=== PATIENT | male | born 1975 | race Caucasian/White ===

== ENCOUNTER → 2022-05-07 13:03 | Outpatient (BNVA) | payer OTHER, SELFPAY | PROVIDERS: PCP Student in an Organized Health Care Education/Training Program; Visit Provider Nurse Practitioner Family | DX: G43.009 Migraine without aura, not intractable, without status migrainosus (principal); R41.89 Other symptoms and signs involving cognitive functions and awareness; R46.89 Other symptoms and signs involving appearance and behavior; F25.9 Schizoaffective disorder, unspecified | CPT/HCPCS: 99202 ==

== ENCOUNTER → 2022-12-05 12:17 | Outpatient (BNVA) | payer OTHER, SELFPAY | PROVIDERS: PCP Student in an Organized Health Care Education/Training Program; Visit Provider Nurse Practitioner Family | DX: G43.009 Migraine without aura, not intractable, without status migrainosus (principal); R41.89 Other symptoms and signs involving cognitive functions and awareness; R46.89 Other symptoms and signs involving appearance and behavior | CPT/HCPCS: 99212 ==

== ENCOUNTER 2023-04-01 19:01 | Inpatient (IN) | payer OTHER, SELFPAY ==
[2023-04-01 19:15] VITALS: BP 125/76; PULSE 78; RESP 16; TEMP 36.1; O2SAT 99
[2023-04-01 21:38] VITALS: BMI 24.6
--- NOTE | 2023-04-01 22:35 | PC.ADMIT ---
Addendum entered by Socorro Callaway RN 04/01/23 22:51: PT was placed on 15 minute safety checks. PT refused flu vaccine as he already received it this season. Original Note: PT is a 48 year old bermudian only speaking male that arrived on this unit at 19:10 from [facility]. Admission interview and legals done by Maite Zamudio RN due to being Japanese speaking [facility]. PT was medically admitted to [facility] and subsequently medically cleared after ingesting 4 bottles of unknown meds in a suicide attempt. PT reports no recent life changes however reports he feels his meds have not been working despite him taking them as directed. PT reports a history of requiring IPLOC ([place] in 2016 and 2019 as well as APTU but dates unknown)and multiple suicide gestures. PT denies any illicit substance use however TOX screen was + for cocaine. COVID neg. PT does not report any acute medical issues or concerns. PT reports needing med changes as he has had an increase in AH which led to his suicide attempt. According to [facility] report, psych meds were discontinued. PT reports having a therpist and psychiatrist in [place] that he speaks with on the phone biweekly but does not know their names. PT denies SI/HI and VH. Legals signed, safety tool completed. TX plan to be completed. Continue plan of care.
--- NOTE | 2023-04-01 23:34 | PC.NURSE ---
Per notes from [facility], psych meds were discontinued. Cam made aware, med rec to be completed tomorrow per provider. Continue plan of care.
[2023-04-02 08:00] VITALS: BP 134/63; PULSE 84; RESP 18; TEMP 35.9; O2SAT 99
[2023-04-02 09:37] LABS: Estimated Average Glucose 94 mg/dL; Hemoglobin A1c % 4.9 % (<6.0)
[2023-04-02 09:38] LABS: Alanine Aminotransferase 12 U/L (0-40); Albumin Level 4.4 g/dL (3.5-5.0); Alkaline Phosphatase 63 U/L (39-117); Anion Gap 14 (12-20); Aspartate Amino Transferase 15 U/L (5-37); Bilirubin Total 0.6 mg/dL (0.0-1.0); Blood Urea Nitrogen 13 mg/dL (9-16); Carbon Dioxide 25 mmol/L (22-29); Chloride 106 mmol/L (96-108); Cholesterol 219 mg/dL (<200); Creatinine Clr Calc Pharmacy 99.2; Estimated Glomerular Filt Rate > 60; Glucose Fasting 94 mg/dL (60-99); HDL Cholesterol 55 mg/dL (>40); LDL Cholesterol Calculated 138 mg/dL (<100); Potassium 4.4 mmol/L (3.3-5.1); Sodium 141 mmol/L (135-145); Total Protein 7.3 g/dL (6.5-8.0); Triglycerides 132 mg/dL (<150)
[2023-04-02 09:48] LABS: Thyroid Stimulating Hormone 3.87 uIU/mL (0.32-4.0)
[2023-04-02 10:05] LABS: Folate 13.3 ng/mL (> or = 4.0); Vitamin B12 1042 pg/mL (200-900)
[2023-04-02] MEDS: Nicotine 14 MG PATCH.TD24 TRANSDERMA (12:06)
[2023-04-02] MEDS: Divalproex Sodium 500 MG TABLET.DR PO (12:06)
[2023-04-02] MEDS: Cholecalciferol (Vitamin D3) 25 MCG TABLET 50 MCG PO (12:06)
--- NOTE | 2023-04-02 14:10 | P.CONHOSP_ITS ---
History of Present Illness Data of Consult Service Date: 04/02/23 Requesting physician: Darnell Villalobos Primary Care Provider: Unknown Physician HPI Reason for consult: medical H&P 48-year-old male without any significant past medical history admitted to Psychiatry with consult placed hospitalist service for medical H and P. The patient is a direct admission from [facility] where he had been admitted following an overdose of Depakote, trazodone, bupropion. Poison Control was contacted recommending serial EKGs and checking ammonia level and Depakote q.4h. Initially Depakote level was 100 but trended down to therapeutic level. Ammonia level remained normal. Telemetry monitoring and EKGs were negative for any ectopy or QTC abnormality. On discharge, hematology studies and chemistries were unremarkable. He denies any drug use or alcohol use but does smoke 3 cigarettes daily. He has no complaints at this time. Review of Systems 2 Review of Systems: General: No fevers, malaise, unintentional weight loss HEENT: No blurred vision, diplopia. No sore throat, nasal congestion, rhinorrhea, sinus pain, ear pain Cardiovascular: No chest pain, palpitations, or leg edema Respiratory: No shortness of breath, wheezing, cough GI: No abdominal pain, nausea, vomiting, diarrhea, constipation, melena, hematochezia : No dysuria, hematuria, increased urinary frequency, decreased urinary output MSK: No myalgia, back pain Neuro: No headaches, weakness, paresthesias Skin: No rashes or lesions [facility] Medical History No pertinent past medical history Family History Mother Hypertension Mental disorder Father Alzheimer disease Dementia Maternal Grandmother Suicide Surgical History History of back surgery Social History Household Members: None Housing: Apartment Do you presently have visiting nurse or other home services: Yes Alcohol intake: never Patient Tobacco Use Status: Current everyday Tobacco user Tobacco use type: Cigarette Cigarettes Per Day: 3 Years Smoked: 1 Smoked in Last 30 Days: Yes e-Cigarette/Vaping Use: Never Used Patient Interested in Nicotine Replacement: Yes Patient Given Instructions on How to Stop Smoking: Yes Date Education Initiated: 04/01/23 Second Hand Smoke Exposure: No Use of substances other than those prescribed or required for medical reasons: No Currently Displaying Signs/Symptoms of Drug Intoxication Withdrawal: No Have you been hit, kicked, punched, or otherwise hurt by someone within the past year? If so, by whom?: No Do you feel safe in your current relationship?: No Current Relationship Is there a partner from a previous relationship who is making you feel unsafe now?: No Are you made to feel afraid or neglected: No Advance Directives: No Advance Directives Information Provided: No Do you have thoughts of harming others: None Do you have a plan to hurt others: No Plan Recently lost weight without trying: No Nutrition Risks: No Nutritional Risk Poor oral hygiene: No Meds Allergies Allergy/AdvReac Type Severity Reaction Status Date / Time No Known Allergies Allergy Verified 12/05/22 13:00 Active Medications: Current Medications Acetaminophen (Acetaminophen 325 Mg Tablet) 650 mg PO Q6H PRN PRN Reason: Headache/Pain Mild Scale (1-3) Al Hydroxide/Mg Hydroxide (Magnesium Hydrox/Alum Hydrox 30 Ml Oral.Susp) 30 ml PO Q6H PRN PRN Reason: Heartburn/Nausea Divalproex Sodium (Divalproex Sodium 500 Mg Tablet.Dr) 500 mg PO DAILY [facility] Last Admin: 04/02/23 12:06 Dose: 500 mg Hydroxyzine HCl (Hydroxyzine Hcl 25 Mg Tablet) 25 mg PO Q6H PRN PRN Reason: Anxiety Magnesium Hydroxide (Milk Of Magnesia 30 Ml Oral.Susp) 30 ml PO DAILY PRN PRN Reason: Constipation Magnesium Oxide (Magnesium Oxide 400 Mg Tablet) 400 mg PO BEDTIME [facility] Nicotine (Nicotine 14 Mg Patch.Td24) 14 mg TRANSDERMA DAILY [facility] Last Admin: 04/02/23 12:06 Dose: 14 mg Nicotine Polacrilex (Nicotine Polacrilex 2 Mg Gum) 2 mg BUCCAL Q2H PRN PRN Reason: Nicotine Cravings Trazodone HCl (Trazodone Hcl 50 Mg Tablet) 150 mg PO BEDTIME [facility] Vitamin D (Cholecalciferol (Vitamin D3) 25 Mcg Tablet) 50 mcg PO DAILY [facility] Last Admin: 04/02/23 12:06 Dose: 50 mcg Home Medications Medication Instructions Recorded Confirmed Last Taken Type cholecalciferol (vitamin D3) 50 50 mcg PO DAILY 04/02/23 04/02/23 Unknown History mcg (2,000 unit) tablet (Vitamin D3) divalproex 500 mg tablet,delayed 500 mg PO QAM 04/02/23 04/02/23 Unknown History release magnesium oxide 1 mg PO BEDTIME 04/02/23 04/02/23 Unknown History paliperidone palmitate 117 mg/0.75 117 mg IM QMONTH 04/02/23 04/02/23 Unknown History mL intramuscular syringe (Invega Sustenna) riboflavin (vitamin B2) 400 mg 400 mg PO DAILY 04/02/23 04/02/23 Unknown History tablet trazodone 100 mg tablet 150 mg PO BEDTIME 04/02/23 04/02/23 Unknown History Physical Exam 2 Vital Signs and Narrative: Vital Signs: Last Vital Signs Temp 96.7 F L 04/02/23 08:00 Pulse 84 04/02/23 08:00 Resp 18 04/02/23 08:00 BP 134/63 04/02/23 08:00 Pulse Ox 99 04/02/23 08:00 O2 Del Method Room Air 04/02/23 08:00 BMI result Body Mass Index 24.6 Constitutional - Awake and Alert, No apparent distress Eyes - PERRLA, EOMI Cardiovascular - S1S2, RRR, No edema Respiratory - Normal lung expansion, Normal respiratory effort, No respiratory distress, CTA bilaterally Gastrointestinal - NT / ND; +BS; No rebound or guarding Extremities - no calf tenderness bilaterally, no swelling Musculoskeletal - Normal inspection, normal ROM Skin - Warm/Dry Neurological - Alert & oriented x3, CN II-XII in tact, 5/5 strength BUE and BLE Psychological - Appropriate affect Results Labs 04/02/23 08:28 Labs: Laboratory Results - last 24 hr 04/02/23 08:28 Anion Gap 14 Estim Creat Clear Calc 99.2 Estimated GFR > 60 Fasting Glucose 94 Estimat Average Glucose 94 Hemoglobin A1c % 4.9 Calcium 10.0 Total Bilirubin 0.6 AST 15 ALT 12 Alkaline Phosphatase 63 Total Protein 7.3 Albumin 4.4 Triglycerides 132 Cholesterol 219 H LDL Cholesterol, Calc 138 H HDL Cholesterol 55 Vitamin B12 1042 H Folate 13.3 TSH 3.87 Assessment and Plan (1) Routine medical exam: Status: Acute Plan 48-year-old male without any significant past medical history admitted to Psychiatry with consult placed hospitalist service for medical H and P. #Mood disorder/SI -plan per psychiatry #Intentional overdose -overdose on trazodone, bupropion, depakote -Depakote and ammonia levels normal on discharge -EKG reassuring, no ectopy or qt prolongation #Cigarette smoker -NRT -cessation counsing Thank you for allowing me to participate in this consult. Signing off at this time. Please do not hesitate to call for further questions. Time Spent With Patient Time: Total time managing care of this patient today ____ minutes.
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
[2023-04-02 18:00] VITALS: BP 115/76; PULSE 97; RESP 18; TEMP 36.6; O2SAT 97
[2023-04-02] MEDS: Magnesium Oxide 400 MG TABLET PO (20:57)
[2023-04-02] MEDS: traZODone HCL 50 MG TABLET 150 MG PO (20:57)
[2023-04-02] MEDS: chlorproMAZINE HCl 25 MG TABLET 50 MG PO (20:59)
[2023-04-03 08:00] VITALS: BP 96/54; PULSE 70; RESP 16; TEMP 36.2; O2SAT 97
[2023-04-03] MEDS: Divalproex Sodium 500 MG TABLET.DR PO (08:47)
[2023-04-03] MEDS: Nicotine 14 MG PATCH.TD24 TRANSDERMA (08:47)
[2023-04-03] MEDS: Cholecalciferol (Vitamin D3) 25 MCG TABLET 50 MCG PO (08:48)
--- NOTE | 2023-04-03 14:56 | HO.PSYCHPN ---
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 Reports mother will visit and will bring Invega Sustenna injection. Continues to report difficulty with sleep will adjust meds. Depressive sx are so-so . Reports less anxiety, feeling improved in some ways. Message left with [facility], Dr. Méndez regarding treatment. Pt asking to discontinue Trazodone it really has never worked for me and makes me feel worse it seems . My other meds are good I think Continues to reports auditory perceptual alterations-agrees to Trazodone increase along with Mirtazpaine trial. Medication Compliance: Yes Side effects from medications: No Attending Groups: No Review of Systems Acute medical concerns: No Medical Review of Systems: unchanged Mental Status Exam Mental Status Exam Patient Appearance: Appropriate and Rigid (perioral TD) Patient Orientation: Person, Place, Time and Situation Level of Consciousness: Alert Patient Behavior: Appropriate, Talkative, Cooperative, Passive, Anxious, Distractible and Good Eye Contact Mood Description: Constricted Affect Description: Flat Patient Cognition Impaired: No Ability to Follow Directions: Fair Speech Pattern: Perseverating and Spontaneous Speech Memory Description: Episodic Impaired Hallucinations: Auditory Delusions: Not Present Perceptual Disturbances: Depersonalization and Derealization Thought Process: Distracted and Rumination Thought Content: positive for Perseveration, positive for Thought Blocking (???) and positive for Suicidal Ideation (denies) Depressive Symptoms: Insomnia (reversal of sleep cycle), Difficulty Sleeping and Thoughts of /Suicide (denies) Judgement: Fair Diagnostics Vital Signs (24Hr): Vital Signs - 24 hr 04/02/23 18:00 04/03/23 08:00 Temperature 98 F 97.2 F Pulse Rate 97 70 Respiratory Rate 18 16 Blood Pressure 115/76 96/54 L Pulse Oximetry 97 97 Oxygen Delivery Method Room Air Room Air BMI result Body Mass Index 24.6 Labs 04/02/23 08:28 Labs: Laboratory Results - last 48 hr 04/02/23 08:28 Sodium 141 Potassium 4.4 Chloride 106 Carbon Dioxide 25 Anion Gap 14 BUN 13 Creatinine 0.98 Estim Creat Clear Calc 99.2 Estimated GFR > 60 Fasting Glucose 94 Estimat Average Glucose 94 Hemoglobin A1c % 4.9 Calcium 10.0 Total Bilirubin 0.6 AST 15 ALT 12 Alkaline Phosphatase 63 Total Protein 7.3 Albumin 4.4 Triglycerides 132 Cholesterol 219 H LDL Cholesterol, Calc 138 H HDL Cholesterol 55 Vitamin B12 1042 H Folate 13.3 TSH 3.87 Medications Medications Current Medications Acetaminophen (Acetaminophen 325 Mg Tablet) 650 mg PO Q6H PRN PRN Reason: Headache/Pain Mild Scale (1-3) Al Hydroxide/Mg Hydroxide (Magnesium Hydrox/Alum Hydrox 30 Ml Oral.Susp) 30 ml PO Q6H PRN PRN Reason: Heartburn/Nausea Divalproex Sodium (Divalproex Sodium 500 Mg Tablet.Dr) 500 mg PO DAILY [facility] Last Admin: 04/03/23 08:47 Dose: 500 mg Hydroxyzine HCl (Hydroxyzine Hcl 25 Mg Tablet) 25 mg PO Q6H PRN PRN Reason: Anxiety Magnesium Hydroxide (Milk Of Magnesia 30 Ml Oral.Susp) 30 ml PO DAILY PRN PRN Reason: Constipation Magnesium Oxide (Magnesium Oxide 400 Mg Tablet) 400 mg PO BEDTIME [facility] Last Admin: 04/02/23 20:57 Dose: 400 mg Nicotine (Nicotine 14 Mg Patch.Td24) 14 mg TRANSDERMA DAILY [facility] Last Admin: 04/03/23 08:47 Dose: 14 mg Nicotine Polacrilex (Nicotine Polacrilex 2 Mg Gum) 2 mg BUCCAL Q2H PRN PRN Reason: Nicotine Cravings Trazodone HCl (Trazodone Hcl 50 Mg Tablet) 150 mg PO BEDTIME [facility] Last Admin: 04/02/23 20:57 Dose: 150 mg Vitamin D (Cholecalciferol (Vitamin D3) 25 Mcg Tablet) 50 mcg PO DAILY [facility] Last Admin: 04/03/23 08:48 Dose: 50 mcg Allergies Allergies Allergy/AdvReac Type Severity Reaction Status Date / Time No Known Allergies Allergy Verified 12/05/22 13:00 Assessment & Plan Assessment & Plan (1) Schizo affective schizophrenia: Status: Acute Code(s): F25.9 - Schizoaffective disorder, unspecified (2) PTSD (post-traumatic stress disorder): Status: Acute Code(s): F43.10 - Post-traumatic stress disorder, unspecified Plan 48 yo male, history of PTSD, schizophrenia, cannabis use in sustained remission presents in transfer from [facility] s/p overdose of prescribed psychiatric medication which he cannot identify. Reports no current precipitants but no reason to live, responded to CAH to harm himself. Willing to work with the team on current symptoms. Plan: Chlorpromazine 50 mg hs tonight to trial for sleep. Collateral contact, mother, Dr. Méndez Milieu involvement Medication re-evaluation and adjustment After care planning 04/03/23 Increase Chlorpromazine to 100 mg HS Mirtazapine 7.5 mg HS Discontinue Trazodone Invega Sustenna injection due 04/10/23 Patient educated on: medication risk/benefits and therapeutic strategies Informed Consent: further education needed Reason for continued inpatient stay Substantial Risk for: harm to self and rapid decompensation Time Spent With Patient Time: Total time managing care of this patient today ____ minutes.
[2023-04-03 18:00] VITALS: BP 107/68; PULSE 87; TEMP 36.3; O2SAT 97
[2023-04-03] MEDS: chlorproMAZINE HCl 100 MG TABLET PO (21:51)
[2023-04-03] MEDS: Mirtazapine 7.5 MG TABLET PO (21:51)
[2023-04-03] MEDS: Magnesium Oxide 400 MG TABLET PO (21:51)
[2023-04-04 07:00] VITALS: BMI 24.8
[2023-04-04 08:40] VITALS: BP 131/87; PULSE 73; RESP 16; TEMP 35.7; O2SAT 99
[2023-04-04] MEDS: Nicotine 14 MG PATCH.TD24 TRANSDERMA (08:41)
[2023-04-04] MEDS: Divalproex Sodium 500 MG TABLET.DR PO (08:41)
[2023-04-04] MEDS: Cholecalciferol (Vitamin D3) 25 MCG TABLET 50 MCG PO (08:41)
--- NOTE | 2023-04-04 12:55 | P.PNPSI_ITS ---
Subjective Subjective Date of Service: 04/04/23 Reason For Visit: F42.9, F29 Subjective Notes: Conditional Voluntary Healthcare Proxy: No Guardianship: No Medical Problems Affecting Mental Status: No Interim History: Pt reports he slept reasonably last evening. Reports feeling some improvement. Mother's visit last evening was helpful. Discussed Invega Sustenna injection and increasing dosing to improve mgt of auditory perceptual alterations. Pt is agreeable to an increase from 117 mg to 156 mg. Injection due 04/10/23. Medication Compliance: Yes Side effects from medications: No Attending Groups: No Review of Systems Acute medical concerns: No Medical Review of Systems: unchanged Mental Status Exam Mental Status Exam Patient Appearance: Appropriate and Rigid (perioral TD) Patient Orientation: Person, Place, Time and Situation Level of Consciousness: Alert Patient Behavior: Appropriate, Talkative, Cooperative, Passive, Anxious, Distractible and Good Eye Contact Mood Description: Constricted Affect Description: Flat Patient Cognition Impaired: No Ability to Follow Directions: Fair Speech Pattern: Perseverating and Spontaneous Speech Memory Description: Episodic Impaired Hallucinations: Auditory Delusions: Not Present Perceptual Disturbances: Depersonalization and Derealization Thought Process: Distracted and Rumination Thought Content: positive for Perseveration, positive for Thought Blocking (???) and positive for Suicidal Ideation (denies) Depressive Symptoms: Insomnia (reversal of sleep cycle), Difficulty Sleeping and Thoughts of /Suicide (denies) Judgement: Fair Diagnostics Vital Signs (24Hr): Vital Signs - 24 hr 04/03/23 18:00 04/04/23 08:40 Temperature 97.4 F 96.3 F L Pulse Rate 87 73 Respiratory Rate 16 Blood Pressure 107/68 131/87 Pulse Oximetry 97 99 Oxygen Delivery Method Room Air Room Air BMI result Body Mass Index 24.8 Labs 04/02/23 08:28 Medications Medications Current Medications Acetaminophen (Acetaminophen 325 Mg Tablet) 650 mg PO Q6H PRN PRN Reason: Headache/Pain Mild Scale (1-3) Al Hydroxide/Mg Hydroxide (Magnesium Hydrox/Alum Hydrox 30 Ml Oral.Susp) 30 ml PO Q6H PRN PRN Reason: Heartburn/Nausea Chlorpromazine HCl (Chlorpromazine Hcl 100 Mg Tablet) 100 mg PO BEDTIME [facility] Last Admin: 04/03/23 21:51 Dose: 100 mg Divalproex Sodium (Divalproex Sodium 500 Mg Tablet.) 500 mg PO DAILY [facility] Last Admin: 04/04/23 08:41 Dose: 500 mg Hydroxyzine HCl (Hydroxyzine Hcl 25 Mg Tablet) 25 mg PO Q6H PRN PRN Reason: Anxiety Magnesium Hydroxide (Milk Of Magnesia 30 Ml Oral.Susp) 30 ml PO DAILY PRN PRN Reason: Constipation Magnesium Oxide (Magnesium Oxide 400 Mg Tablet) 400 mg PO BEDTIME [facility] Last Admin: 04/03/23 21:51 Dose: 400 mg Mirtazapine (Mirtazapine 7.5 Mg Tablet) 7.5 mg PO BEDTIME [facility] Last Admin: 04/03/23 21:51 Dose: 7.5 mg Nicotine (Nicotine 14 Mg Patch.Td24) 14 mg TRANSDERMA DAILY [facility] Last Admin: 04/04/23 08:41 Dose: 14 mg Nicotine Polacrilex (Nicotine Polacrilex 2 Mg Gum) 2 mg BUCCAL Q2H PRN PRN Reason: Nicotine Cravings Patient Own Medication ( Paliperidone Palmitate [Invega Sustenna] 117 Mg/0. 75 Ml Syringe) 117 mg IM Q28D [facility] Vitamin D (Cholecalciferol (Vitamin D3) 25 Mcg Tablet) 50 mcg PO DAILY [facility] Last Admin: 04/04/23 08:41 Dose: 50 mcg Allergies Allergies Allergy/AdvReac Type Severity Reaction Status Date / Time No Known Allergies Allergy Verified 12/05/22 13:00 Assessment & Plan Assessment & Plan (1) Schizo affective schizophrenia: Status: Acute Code(s): F25.9 - Schizoaffective disorder, unspecified (2) PTSD (post-traumatic stress disorder): Status: Acute Code(s): F43.10 - Post-traumatic stress disorder, unspecified Plan 48 yo male, history of PTSD, schizophrenia, cannabis use in sustained remission presents in transfer from [facility] s/p overdose of prescribed psychiatric medication which he cannot identify. Reports no current precipitants but no reason to live, responded to [facility] to harm himself. Willing to work with the team on current symptoms. Plan: Chlorpromazine 50 mg hs tonight to trial for sleep. Collateral contact, mother, Dr. Méndez Milieu involvement Medication re-evaluation and adjustment After care planning 04/04/23- Continue current regime and plan Increase Invega Sustenna to 156 mg IM on 04/10/23. Patient educated on: medication risk/benefits Informed Consent: understands and further education needed Reason for continued inpatient stay Substantial Risk for: rapid decompensation Time Spent With Patient Time: Total time managing care of this patient today ____ minutes.
[2023-04-04] MEDS: Magnesium Oxide 400 MG TABLET PO (21:11)
[2023-04-04] MEDS: Mirtazapine 7.5 MG TABLET PO (21:11)
[2023-04-04] MEDS: chlorproMAZINE HCl 100 MG TABLET PO (21:11)
[2023-04-05] MEDS: Nicotine 14 MG PATCH.TD24 TRANSDERMA (08:05)
[2023-04-05] MEDS: Divalproex Sodium 500 MG TABLET.DR PO (08:05)
[2023-04-05] MEDS: Cholecalciferol (Vitamin D3) 25 MCG TABLET 50 MCG PO (08:05)
[2023-04-05 08:20] VITALS: BP 108/68; PULSE 70; RESP 18; TEMP 36.4; O2SAT 99
--- NOTE | 2023-04-05 13:02 | HO.PSYCHPN ---
Subjective Subjective Date of Service: 04/05/23 Reason For Visit: F42.9, F29 Subjective Notes: Conditional Voluntary Healthcare Proxy: No Guardianship: No Medical Problems Affecting Mental Status: No Interim History: Pt reports he continues to have appropriate sleep. He is agreeable to an increase in Invega Sustenna on 04/10 to 156 mg and will plan to discharge 04/11 if there are no adverse effects of the injection. Mother is supportive and we are informed today that she has arranged to get pt a kitten to help manage lonliness when discharged. Pt reports this plan he is comfortable with. He denies other concerns today. Medication Compliance: Yes Side effects from medications: No Attending Groups: No Review of Systems Acute medical concerns: No Medical Review of Systems: unchanged Mental Status Exam Mental Status Exam Patient Appearance: Appropriate and Rigid (perioral TD) Patient Orientation: Person, Place, Time and Situation Level of Consciousness: Alert Patient Behavior: Appropriate, Talkative, Cooperative, Passive, Anxious, Distractible and Good Eye Contact Mood Description: Constricted Affect Description: Flat Patient Cognition Impaired: No Ability to Follow Directions: Fair Speech Pattern: Perseverating and Spontaneous Speech Memory Description: Episodic Impaired Hallucinations: Auditory Delusions: Not Present Perceptual Disturbances: Depersonalization and Derealization Thought Process: Distracted and Rumination Thought Content: positive for Perseveration, positive for Thought Blocking (???) and positive for Suicidal Ideation (denies) Depressive Symptoms: Insomnia (reversal of sleep cycle), Difficulty Sleeping and Thoughts of /Suicide (denies) Judgement: Fair Diagnostics Vital Signs (24Hr): Vital Signs - 24 hr 04/05/23 08:20 Temperature 97.5 F Pulse Rate 70 Respiratory Rate 18 Blood Pressure 108/68 Pulse Oximetry 99 Oxygen Delivery Method Room Air BMI result Body Mass Index 24.8 Labs 04/02/23 08:28 Medications Medications Current Medications Acetaminophen (Acetaminophen 325 Mg Tablet) 650 mg PO Q6H PRN PRN Reason: Headache/Pain Mild Scale (1-3) Al Hydroxide/Mg Hydroxide (Magnesium Hydrox/Alum Hydrox 30 Ml Oral.Susp) 30 ml PO Q6H PRN PRN Reason: Heartburn/Nausea Chlorpromazine HCl (Chlorpromazine Hcl 100 Mg Tablet) 100 mg PO BEDTIME [facility] Last Admin: 04/04/23 21:11 Dose: 100 mg Divalproex Sodium (Divalproex Sodium 500 Mg Tablet.) 500 mg PO DAILY [facility] Last Admin: 04/05/23 08:05 Dose: 500 mg Hydroxyzine HCl (Hydroxyzine Hcl 25 Mg Tablet) 25 mg PO Q6H PRN PRN Reason: Anxiety Magnesium Hydroxide (Milk Of Magnesia 30 Ml Oral.Susp) 30 ml PO DAILY PRN PRN Reason: Constipation Magnesium Oxide (Magnesium Oxide 400 Mg Tablet) 400 mg PO BEDTIME [facility] Last Admin: 04/04/23 21:11 Dose: 400 mg Mirtazapine (Mirtazapine 7.5 Mg Tablet) 7.5 mg PO BEDTIME [facility] Last Admin: 04/04/23 21:11 Dose: 7.5 mg Nicotine (Nicotine 14 Mg Patch.Td24) 14 mg TRANSDERMA DAILY [facility] Last Admin: 04/05/23 08:05 Dose: 14 mg Nicotine Polacrilex (Nicotine Polacrilex 2 Mg Gum) 2 mg BUCCAL Q2H PRN PRN Reason: Nicotine Cravings Paliperidone Palmitate (Paliperidone Palmitate 156 Mg/Ml Syringe) 156 mg IM Q28D [facility] Vitamin D (Cholecalciferol (Vitamin D3) 25 Mcg Tablet) 50 mcg PO DAILY [facility] Last Admin: 04/05/23 08:05 Dose: 50 mcg Allergies Allergies Allergy/AdvReac Type Severity Reaction Status Date / Time No Known Allergies Allergy Verified 12/05/22 13:00 Assessment & Plan Assessment & Plan (1) Schizo affective schizophrenia: Status: Acute Code(s): F25.9 - Schizoaffective disorder, unspecified (2) PTSD (post-traumatic stress disorder): Status: Acute Code(s): F43.10 - Post-traumatic stress disorder, unspecified Plan 48 yo male, history of PTSD, schizophrenia, cannabis use in sustained remission presents in transfer from [facility] s/p overdose of prescribed psychiatric medication which he cannot identify. Reports no current precipitants but no reason to live, responded to [facility] to harm himself. Willing to work with the team on current symptoms. Plan: Chlorpromazine 50 mg hs tonight to trial for sleep. Collateral contact, mother, Dr. Méndez Milieu involvement Medication re-evaluation and adjustment After care planning 04/04/23- Continue current regime and plan Increase Invega Sustenna to 156 mg IM on 04/10/23. 11/3/23- Continue current regime and plan of care Patient educated on: therapeutic strategies Informed Consent: understands Reason for continued inpatient stay Substantial Risk for: rapid decompensation Time Spent With Patient Time: Total time managing care of this patient today ____ minutes.
[2023-04-05] MEDS: Mirtazapine 7.5 MG TABLET PO (19:41)
[2023-04-05] MEDS: chlorproMAZINE HCl 100 MG TABLET PO (19:41)
[2023-04-05] MEDS: Magnesium Oxide 400 MG TABLET PO (19:41)
[2023-04-06 07:40] VITALS: BP 121/71; PULSE 72; RESP 18; TEMP 36.1; O2SAT 98
[2023-04-06] MEDS: Nicotine 14 MG PATCH.TD24 TRANSDERMA (08:52)
[2023-04-06] MEDS: Cholecalciferol (Vitamin D3) 25 MCG TABLET 50 MCG PO (08:53)
[2023-04-06] MEDS: Divalproex Sodium 500 MG TABLET.DR PO (08:53)
--- NOTE | 2023-04-06 10:29 | HO.PSYCHPN ---
Subjective Subjective Date of Service: 04/06/23 Reason For Visit: F42.9, F29 Subjective Notes: Conditional Voluntary Healthcare Proxy: No Guardianship: No Medical Problems Affecting Mental Status: No Medication Compliance: Yes Side effects from medications: No Attending Groups: No Review of Systems Acute medical concerns: No Medical Review of Systems: unchanged Mental Status Exam Mental Status Exam Patient Appearance: Well Grooomed Patient Orientation: Person, Place and Time Level of Consciousness: Alert Patient Behavior: Guarded Mood Description: Calm Affect Description: Apprehensive Patient Cognition Impaired: No Ability to Follow Directions: Good Speech Pattern: Clear Memory Description: Intact Hallucinations: None Delusions: Paranoid Ideation (denies but appears suspicious) Thought Process: Linear Thought Content: positive for Poverty of Content Judgement: Fair Diagnostics Vital Signs (24Hr): Vital Signs - 24 hr 04/06/23 07:40 Temperature 96.9 F Pulse Rate 72 Respiratory Rate 18 Blood Pressure 121/71 Pulse Oximetry 98 Oxygen Delivery Method Room Air BMI result Body Mass Index 24.8 Labs 04/02/23 08:28 Medications Medications Current Medications Acetaminophen (Acetaminophen 325 Mg Tablet) 650 mg PO Q6H PRN PRN Reason: Headache/Pain Mild Scale (1-3) Al Hydroxide/Mg Hydroxide (Magnesium Hydrox/Alum Hydrox 30 Ml Oral.Susp) 30 ml PO Q6H PRN PRN Reason: Heartburn/Nausea Chlorpromazine HCl (Chlorpromazine Hcl 100 Mg Tablet) 100 mg PO BEDTIME [facility] Last Admin: 04/05/23 19:41 Dose: 100 mg Divalproex Sodium (Divalproex Sodium 500 Mg Tablet.Dr) 500 mg PO DAILY [facility] Last Admin: 04/06/23 08:53 Dose: 500 mg Hydroxyzine HCl (Hydroxyzine Hcl 25 Mg Tablet) 25 mg PO Q6H PRN PRN Reason: Anxiety Magnesium Hydroxide (Milk Of Magnesia 30 Ml Oral.Susp) 30 ml PO DAILY PRN PRN Reason: Constipation Magnesium Oxide (Magnesium Oxide 400 Mg Tablet) 400 mg PO BEDTIME [facility] Last Admin: 04/05/23 19:41 Dose: 400 mg Mirtazapine (Mirtazapine 7.5 Mg Tablet) 7.5 mg PO BEDTIME [facility] Last Admin: 04/05/23 19:41 Dose: 7.5 mg Nicotine (Nicotine 14 Mg Patch.Td24) 14 mg TRANSDERMA DAILY [facility] Last Admin: 04/06/23 08:52 Dose: 14 mg Nicotine Polacrilex (Nicotine Polacrilex 2 Mg Gum) 2 mg BUCCAL Q2H PRN PRN Reason: Nicotine Cravings Paliperidone Palmitate (Paliperidone Palmitate 156 Mg/Ml Syringe) 156 mg IM Q28D [facility] Vitamin D (Cholecalciferol (Vitamin D3) 25 Mcg Tablet) 50 mcg PO DAILY [facility] Last Admin: 04/06/23 08:53 Dose: 50 mcg Allergies Allergies Allergy/AdvReac Type Severity Reaction Status Date / Time No Known Allergies Allergy Verified 12/05/22 13:00 Assessment & Plan Assessment & Plan (1) Schizo affective schizophrenia: Status: Acute Code(s): F25.9 - Schizoaffective disorder, unspecified (2) PTSD (post-traumatic stress disorder): Status: Acute Code(s): F43.10 - Post-traumatic stress disorder, unspecified Plan 48 yo male, history of PTSD, schizophrenia, cannabis use in sustained remission presents in transfer from [facility] s/p overdose of prescribed psychiatric medication which he cannot identify. Reports no current precipitants but no reason to live, responded to [facility] to harm himself. Willing to work with the team on current symptoms. Plan: Chlorpromazine 50 mg hs tonight to trial for sleep. Collateral contact, mother, Dr. Méndez Milieu involvement Medication re-evaluation and adjustment After care planning 04/04/23- Continue current regime and plan Increase Invega Sustenna to 156 mg IM on 04/10/23. 04/05/23- Continue current regime and plan of care 04/06/23 No changes Reason for continued inpatient stay Substantial Risk for: rapid decompensation Time Spent With Patient Time: Total time managing care of this patient today ____ minutes.
[2023-04-06 18:00] VITALS: BP 130/82; PULSE 78; RESP 18; TEMP 36.8; O2SAT 99
[2023-04-06] MEDS: Nicotine Polacrilex 2 MG GUM BUCCAL (20:11)
[2023-04-06] MEDS: chlorproMAZINE HCl 100 MG TABLET PO (20:11)
[2023-04-06] MEDS: Mirtazapine 7.5 MG TABLET PO (20:11)
[2023-04-06] MEDS: hydrOXYzine HCL 25 MG TABLET PO (20:11)
[2023-04-06] MEDS: Magnesium Oxide 400 MG TABLET PO (20:11)
[2023-04-07 07:40] VITALS: BP 115/78; PULSE 68; RESP 18; TEMP 36.3; O2SAT 98
[2023-04-07] MEDS: Nicotine 14 MG PATCH.TD24 TRANSDERMA (08:28)
[2023-04-07] MEDS: Cholecalciferol (Vitamin D3) 25 MCG TABLET 50 MCG PO (08:29)
[2023-04-07] MEDS: Divalproex Sodium 500 MG TABLET.DR PO (08:29)
--- NOTE | 2023-04-07 11:19 | HO.PSYCHPN ---
Subjective Subjective Date of Service: 04/07/23 Reason For Visit: F42.9, F29 Subjective Notes: Conditional Voluntary Healthcare Proxy: No Medical Problems Affecting Mental Status: No Interim History: Not wanting to engage. Eating and sleeping OK. Denies thoughts of harming self or others. Voices are decreasing per chart Medication Compliance: Yes Side effects from medications: No Attending Groups: Intermittent Review of Systems Acute medical concerns: No Medical Review of Systems: unchanged Mental Status Exam Mental Status Exam Patient Appearance: Unkempt Patient Orientation: Person, Place and Time Level of Consciousness: Alert Patient Behavior: Suspicious and Uncooperative Mood Description: Withdrawn Affect Description: Constricted Speech Pattern: Clear Memory Description: Intact Hallucinations: Auditory Delusions: Paranoid Ideation Thought Process: Evasive Thought Content: positive for Thought Blocking Judgement: Fair Diagnostics Vital Signs (24Hr): Vital Signs - 24 hr 04/06/23 18:00 04/07/23 07:40 Temperature 98.2 F 97.4 F Pulse Rate 78 68 Respiratory Rate 18 18 Blood Pressure 130/82 115/78 Pulse Oximetry 99 98 Oxygen Delivery Method Room Air Room Air BMI result Body Mass Index 24.8 Labs 04/02/23 08:28 Medications Medications Current Medications Acetaminophen (Acetaminophen 325 Mg Tablet) 650 mg PO Q6H PRN PRN Reason: Headache/Pain Mild Scale (1-3) Al Hydroxide/Mg Hydroxide (Magnesium Hydrox/Alum Hydrox 30 Ml Oral.Susp) 30 ml PO Q6H PRN PRN Reason: Heartburn/Nausea Chlorpromazine HCl (Chlorpromazine Hcl 100 Mg Tablet) 100 mg PO BEDTIME [facility] Last Admin: 04/06/23 20:11 Dose: 100 mg Divalproex Sodium (Divalproex Sodium 500 Mg Tablet.Dr) 500 mg PO DAILY [facility] Last Admin: 04/07/23 08:29 Dose: 500 mg Hydroxyzine HCl (Hydroxyzine Hcl 25 Mg Tablet) 25 mg PO Q6H PRN PRN Reason: Anxiety Last Admin: 04/06/23 20:11 Dose: 25 mg Magnesium Hydroxide (Milk Of Magnesia 30 Ml Oral.Susp) 30 ml PO DAILY PRN PRN Reason: Constipation Magnesium Oxide (Magnesium Oxide 400 Mg Tablet) 400 mg PO BEDTIME [facility] Last Admin: 04/06/23 20:11 Dose: 400 mg Mirtazapine (Mirtazapine 7.5 Mg Tablet) 7.5 mg PO BEDTIME [facility] Last Admin: 04/06/23 20:11 Dose: 7.5 mg Nicotine (Nicotine 14 Mg Patch.Td24) 14 mg TRANSDERMA DAILY [facility] Last Admin: 04/07/23 08:28 Dose: 14 mg Nicotine Polacrilex (Nicotine Polacrilex 2 Mg Gum) 2 mg BUCCAL Q2H PRN PRN Reason: Nicotine Cravings Last Admin: 04/06/23 20:11 Dose: 2 mg Paliperidone Palmitate (Paliperidone Palmitate 156 Mg/Ml Syringe) 156 mg IM Q28D [facility] Vitamin D (Cholecalciferol (Vitamin D3) 25 Mcg Tablet) 50 mcg PO DAILY [facility] Last Admin: 04/07/23 08:29 Dose: 50 mcg Allergies Allergies Allergy/AdvReac Type Severity Reaction Status Date / Time No Known Allergies Allergy Verified 12/05/22 13:00 Assessment & Plan Assessment & Plan (1) Schizo affective schizophrenia: Status: Acute Code(s): F25.9 - Schizoaffective disorder, unspecified (2) PTSD (post-traumatic stress disorder): Status: Acute Code(s): F43.10 - Post-traumatic stress disorder, unspecified Plan 48 yo male, history of PTSD, schizophrenia, cannabis use in sustained remission presents in transfer from [facility] s/p overdose of prescribed psychiatric medication which he cannot identify. Reports no current precipitants but no reason to live, responded to [facility] to harm himself. Willing to work with the team on current symptoms. Plan: Chlorpromazine 50 mg hs tonight to trial for sleep. Collateral contact, mother, Dr. Méndez Milieu involvement Medication re-evaluation and adjustment After care planning 04/04/23- Continue current regime and plan Increase Invega Sustenna to 156 mg IM on 04/10/23. 04/05/23- Continue current regime and plan of care 04/06/23 No changes 04/07/23: no changes, due for increased Invega Sustenna 04/10 Reason for continued inpatient stay Substantial Risk for: inability to function and med/psych decompensation Time Spent With Patient Time: Total time managing care of this patient today ____ minutes.
[2023-04-07 16:15] VITALS: BP 118/72; PULSE 82; RESP 16; TEMP 36.8; O2SAT 96
[2023-04-07] MEDS: chlorproMAZINE HCl 100 MG TABLET PO (21:41)
[2023-04-07] MEDS: Mirtazapine 7.5 MG TABLET PO (21:42)
[2023-04-07] MEDS: Magnesium Oxide 400 MG TABLET PO (21:42)
[2023-04-07] MEDS: hydrOXYzine HCL 25 MG TABLET PO (21:42)
[2023-04-08 08:00] VITALS: BP 102/68; PULSE 70; RESP 18; TEMP 35.9; O2SAT 98
[2023-04-08] MEDS: Cholecalciferol (Vitamin D3) 25 MCG TABLET 50 MCG PO (09:00)
[2023-04-08] MEDS: Nicotine 14 MG PATCH.TD24 TRANSDERMA (09:00)
[2023-04-08] MEDS: Divalproex Sodium 500 MG TABLET.DR PO (09:00)
--- NOTE | 2023-04-08 09:39 | P.PNPSI_ITS ---
Subjective Subjective Date of Service: 04/08/23 Reason For Visit: F42.9, F29 Subjective Notes: Conditional Voluntary Healthcare Proxy: No Guardianship: No Medical Problems Affecting Mental Status: No Interim History: Pt reports his weekend was without adverse events. He continues to hear voices at night which interrupt sleep. They are voices of others, not his own. Plans an increase in Sustenna on 04/10 and if tolerated will discharge 04/11. Denies SI, plan or intent. Medication Compliance: Yes Side effects from medications: No Attending Groups: No Review of Systems Acute medical concerns: No Medical Review of Systems: unchanged Mental Status Exam Mental Status Exam Patient Appearance: Fatigued and Appropriate Patient Orientation: Person, Place, Time and Situation Level of Consciousness: Alert Patient Behavior: Talkative, Isolative and Good Eye Contact Mood Description: Blunted Affect Description: Blunted Patient Cognition Impaired: No Ability to Follow Directions: Good Speech Pattern: Appropriate and Spontaneous Speech Memory Description: Intact Hallucinations: Auditory Delusions: Not Present Thought Process: Intact Thought Content: positive for Intact Depressive Symptoms: Thoughts of /Suicide (denies) Judgement: Good Diagnostics Vital Signs (24Hr): Vital Signs - 24 hr 04/07/23 16:15 04/08/23 08:00 Temperature 98.3 F 96.7 F L Pulse Rate 82 70 Respiratory Rate 16 18 Blood Pressure 118/72 102/68 Pulse Oximetry 96 98 Oxygen Delivery Method Room Air Room Air BMI result Body Mass Index 24.8 Labs 04/02/23 08:28 Medications Medications Current Medications Acetaminophen (Acetaminophen 325 Mg Tablet) 650 mg PO Q6H PRN PRN Reason: Headache/Pain Mild Scale (1-3) Al Hydroxide/Mg Hydroxide (Magnesium Hydrox/Alum Hydrox 30 Ml Oral.Susp) 30 ml PO Q6H PRN PRN Reason: Heartburn/Nausea Chlorpromazine HCl (Chlorpromazine Hcl 100 Mg Tablet) 100 mg PO BEDTIME [facility] Last Admin: 04/07/23 21:41 Dose: 100 mg Divalproex Sodium (Divalproex Sodium 500 Mg Tablet.) 500 mg PO DAILY [facility] Last Admin: 04/08/23 09:00 Dose: 500 mg Hydroxyzine HCl (Hydroxyzine Hcl 25 Mg Tablet) 25 mg PO Q6H PRN PRN Reason: Anxiety Last Admin: 04/07/23 21:42 Dose: 25 mg Magnesium Hydroxide (Milk Of Magnesia 30 Ml Oral.Susp) 30 ml PO DAILY PRN PRN Reason: Constipation Magnesium Oxide (Magnesium Oxide 400 Mg Tablet) 400 mg PO BEDTIME [facility] Last Admin: 04/07/23 21:42 Dose: 400 mg Mirtazapine (Mirtazapine 7.5 Mg Tablet) 7.5 mg PO BEDTIME [facility] Last Admin: 04/07/23 21:42 Dose: 7.5 mg Nicotine (Nicotine 14 Mg Patch.Td24) 14 mg TRANSDERMA DAILY [facility] Last Admin: 04/08/23 09:00 Dose: 14 mg Nicotine Polacrilex (Nicotine Polacrilex 2 Mg Gum) 2 mg BUCCAL Q2H PRN PRN Reason: Nicotine Cravings Last Admin: 04/06/23 20:11 Dose: 2 mg Paliperidone Palmitate (Paliperidone Palmitate 156 Mg/Ml Syringe) 156 mg IM Q28D [facility] Vitamin D (Cholecalciferol (Vitamin D3) 25 Mcg Tablet) 50 mcg PO DAILY [facility] Last Admin: 04/08/23 09:00 Dose: 50 mcg Allergies Allergies Allergy/AdvReac Type Severity Reaction Status Date / Time No Known Allergies Allergy Verified 12/05/22 13:00 Assessment & Plan Assessment & Plan (1) Schizo affective schizophrenia: Status: Acute Code(s): F25.9 - Schizoaffective disorder, unspecified (2) PTSD (post-traumatic stress disorder): Status: Acute Code(s): F43.10 - Post-traumatic stress disorder, unspecified Plan 48 yo male, history of PTSD, schizophrenia, cannabis use in sustained remission presents in transfer from [facility] s/p overdose of prescribed psychiatric medication which he cannot identify. Reports no current precipitants but no reason to live, responded to [facility] to harm himself. Willing to work with the team on current symptoms. Plan: Chlorpromazine 50 mg hs tonight to trial for sleep. Collateral contact, mother, Dr. Méndez Milieu involvement Medication re-evaluation and adjustment After care planning 04/04/23- Continue current regime and plan Increase Invega Sustenna to 156 mg IM on 04/10/23. 04/05/23- Continue current regime and plan of care 04/06/23 No changes 04/07/23: no changes, due for increased Invega Sustenna 04/1004/08/23 continue current regime and plan of care. Patient educated on: medication risk/benefits Informed Consent: understands Reason for continued inpatient stay Substantial Risk for: harm to self and rapid decompensation Time Spent With Patient Time: Total time managing care of this patient today ____ minutes.
[2023-04-08 16:52] VITALS: BP 118/81; PULSE 92; TEMP 36.3; O2SAT 99
[2023-04-08] MEDS: Mirtazapine 7.5 MG TABLET PO (20:33)
[2023-04-08] MEDS: Magnesium Oxide 400 MG TABLET PO (20:33)
[2023-04-08] MEDS: chlorproMAZINE HCl 100 MG TABLET PO (20:33)
[2023-04-09 08:00] VITALS: BP 112/62; PULSE 77; RESP 16; TEMP 36.3; O2SAT 97
[2023-04-09] MEDS: Cholecalciferol (Vitamin D3) 25 MCG TABLET 50 MCG PO (08:58)
[2023-04-09] MEDS: Nicotine 14 MG PATCH.TD24 TRANSDERMA (08:58)
[2023-04-09] MEDS: Divalproex Sodium 500 MG TABLET.DR PO (08:59)
[2023-04-09] MEDS: Acetaminophen 325 MG TABLET 650 MG PO (09:12)
[2023-04-09] MEDS: hydrOXYzine HCL 25 MG TABLET PO (09:12)
--- NOTE | 2023-04-09 16:25 | HO.PSYCHPN ---
Subjective Subjective Date of Service: 04/09/23 Reason For Visit: F42.9, F29 Subjective Notes: Conditional Voluntary Healthcare Proxy: No Guardianship: No Medical Problems Affecting Mental Status: No Interim History: Pt resting in bed, awake, alert, visable in milieu at times, however appears to remain in his room for most of the day. Denies sx of concern, denies SI, plan or intent. Perceptual alterations are decreased. Prepared for his injection on 04/10 and believes there will be no barrier to a discharge on 04/11. Medication Compliance: Yes Side effects from medications: No Attending Groups: No Review of Systems Acute medical concerns: No Medical Review of Systems: unchanged Mental Status Exam Mental Status Exam Patient Appearance: Appropriate Patient Orientation: Person, Place, Time and Situation Level of Consciousness: Alert Patient Behavior: Talkative, Isolative and Good Eye Contact Mood Description: Blunted Affect Description: Blunted Patient Cognition Impaired: No Ability to Follow Directions: Good Speech Pattern: Appropriate and Spontaneous Speech Memory Description: Intact Hallucinations: Auditory Delusions: Not Present Thought Process: Intact Thought Content: positive for Intact Depressive Symptoms: Thoughts of /Suicide (denies) Judgement: Good Diagnostics Vital Signs (24Hr): Vital Signs - 24 hr 04/08/23 16:52 04/09/23 08:00 Temperature 97.3 F 97.3 F Pulse Rate 92 77 Respiratory Rate 16 Blood Pressure 118/81 112/62 Pulse Oximetry 99 97 Oxygen Delivery Method Room Air Room Air BMI result Body Mass Index 24.8 Labs 04/02/23 08:28 Medications Medications Current Medications Acetaminophen (Acetaminophen 325 Mg Tablet) 650 mg PO Q6H PRN PRN Reason: Headache/Pain Mild Scale (1-3) Last Admin: 04/09/23 09:12 Dose: 650 mg Al Hydroxide/Mg Hydroxide (Magnesium Hydrox/Alum Hydrox 30 Ml Oral.Susp) 30 ml PO Q6H PRN PRN Reason: Heartburn/Nausea Chlorpromazine HCl (Chlorpromazine Hcl 100 Mg Tablet) 100 mg PO BEDTIME [facility] Last Admin: 04/08/23 20:33 Dose: 100 mg Divalproex Sodium (Divalproex Sodium 500 Mg Tablet.Dr) 500 mg PO DAILY [facility] Last Admin: 04/09/23 08:59 Dose: 500 mg Hydroxyzine HCl (Hydroxyzine Hcl 25 Mg Tablet) 25 mg PO Q6H PRN PRN Reason: Anxiety Last Admin: 04/09/23 09:12 Dose: 25 mg Magnesium Hydroxide (Milk Of Magnesia 30 Ml Oral.Susp) 30 ml PO DAILY PRN PRN Reason: Constipation Magnesium Oxide (Magnesium Oxide 400 Mg Tablet) 400 mg PO BEDTIME [facility] Last Admin: 04/08/23 20:33 Dose: 400 mg Mirtazapine (Mirtazapine 7.5 Mg Tablet) 7.5 mg PO BEDTIME [facility] Last Admin: 04/08/23 20:33 Dose: 7.5 mg Nicotine (Nicotine 14 Mg Patch.Td24) 14 mg TRANSDERMA DAILY [facility] Last Admin: 04/09/23 08:58 Dose: 14 mg Nicotine Polacrilex (Nicotine Polacrilex 2 Mg Gum) 2 mg BUCCAL Q2H PRN PRN Reason: Nicotine Cravings Last Admin: 04/06/23 20:11 Dose: 2 mg Paliperidone Palmitate (Paliperidone Palmitate 156 Mg/Ml Syringe) 156 mg IM Q28D [facility] Vitamin D (Cholecalciferol (Vitamin D3) 25 Mcg Tablet) 50 mcg PO DAILY [facility] Last Admin: 04/09/23 08:58 Dose: 50 mcg Allergies Allergies Allergy/AdvReac Type Severity Reaction Status Date / Time No Known Allergies Allergy Verified 12/05/22 13:00 Assessment & Plan Assessment & Plan (1) Schizo affective schizophrenia: Status: Acute Code(s): F25.9 - Schizoaffective disorder, unspecified (2) PTSD (post-traumatic stress disorder): Status: Acute Code(s): F43.10 - Post-traumatic stress disorder, unspecified Plan 48 yo male, history of PTSD, schizophrenia, cannabis use in sustained remission presents in transfer from [facility] s/p overdose of prescribed psychiatric medication which he cannot identify. Reports no current precipitants but no reason to live, responded to [facility] to harm himself. Willing to work with the team on current symptoms. Plan: Chlorpromazine 50 mg hs tonight to trial for sleep. Collateral contact, mother, Dr. Méndez Milieu involvement Medication re-evaluation and adjustment After care planning 04/04/23- Continue current regime and plan Increase Invega Sustenna to 156 mg IM on 04/10/23. 04/05/23- Continue current regime and plan of care 04/06/23 No changes 04/07/23: no changes, due for increased Invega Sustenna 04/1004/09/23 continue current regime and plan of care Informed Consent: understands Reason for continued inpatient stay Substantial Risk for: harm to self and rapid decompensation Time Spent With Patient Time: Total time managing care of this patient today ____ minutes.
[2023-04-09 17:35] VITALS: PULSE 103; RESP 16; TEMP 36.4; O2SAT 98
[2023-04-09] MEDS: Mirtazapine 7.5 MG TABLET PO (19:57)
[2023-04-09] MEDS: chlorproMAZINE HCl 100 MG TABLET PO (19:57)
[2023-04-09] MEDS: Magnesium Oxide 400 MG TABLET PO (19:57)
[2023-04-10] MEDS: Cholecalciferol (Vitamin D3) 25 MCG TABLET 50 MCG PO (08:28)
[2023-04-10] MEDS: Nicotine 14 MG PATCH.TD24 TRANSDERMA (08:28)
[2023-04-10] MEDS: Divalproex Sodium 500 MG TABLET.DR PO (08:28)
[2023-04-10 08:30] VITALS: BP 111/60; PULSE 80; RESP 16; TEMP 36.3; O2SAT 98
[2023-04-10] MEDS: Paliperidone Palmitate 156 MG/ML SYRINGE IM (10:34)
--- NOTE | 2023-04-10 16:22 | HO.PSYCHPN ---
Subjective Subjective Date of Service: 04/10/23 Reason For Visit: F42.9, F29 Subjective Notes: Conditional Voluntary Healthcare Proxy: No Guardianship: No Medical Problems Affecting Mental Status: No Interim History: Pt reports feeling well. Tolerated Invega Sustenna injection 156 mg today. Plans discharge 04/11 Denies SI, HI, AH, VH, CAH at this time Believes he is prepared to discharge Medication Compliance: Yes Side effects from medications: No Attending Groups: No Review of Systems Acute medical concerns: No Medical Review of Systems: unchanged Mental Status Exam Mental Status Exam Patient Appearance: Appropriate Patient Orientation: Person, Place, Time and Situation Level of Consciousness: Alert Patient Behavior: Talkative, Isolative and Good Eye Contact Mood Description: Blunted Affect Description: Blunted Patient Cognition Impaired: No Ability to Follow Directions: Good Speech Pattern: Appropriate and Spontaneous Speech Memory Description: Intact Hallucinations: None (denies today) Delusions: Not Present Thought Process: Intact Thought Content: positive for Intact Depressive Symptoms: Thoughts of /Suicide (denies) Judgement: Good Diagnostics Vital Signs (24Hr): Vital Signs - 24 hr 04/09/23 17:35 04/10/23 08:30 Temperature 97.5 F 97.3 F Pulse Rate 103 H 80 Respiratory Rate 16 16 Blood Pressure 111/60 Pulse Oximetry 98 98 Oxygen Delivery Method Room Air Room Air BMI result Body Mass Index 24.8 Labs 04/02/23 08:28 Medications Medications Current Medications Acetaminophen (Acetaminophen 325 Mg Tablet) 650 mg PO Q6H PRN PRN Reason: Headache/Pain Mild Scale (1-3) Last Admin: 04/09/23 09:12 Dose: 650 mg Al Hydroxide/Mg Hydroxide (Magnesium Hydrox/Alum Hydrox 30 Ml Oral.Susp) 30 ml PO Q6H PRN PRN Reason: Heartburn/Nausea Chlorpromazine HCl (Chlorpromazine Hcl 100 Mg Tablet) 100 mg PO BEDTIME [facility] Last Admin: 04/09/23 19:57 Dose: 100 mg Divalproex Sodium (Divalproex Sodium 500 Mg Tablet.Dr) 500 mg PO DAILY [facility] Last Admin: 04/10/23 08:28 Dose: 500 mg Hydroxyzine HCl (Hydroxyzine Hcl 25 Mg Tablet) 25 mg PO Q6H PRN PRN Reason: Anxiety Last Admin: 04/09/23 09:12 Dose: 25 mg Magnesium Hydroxide (Milk Of Magnesia 30 Ml Oral.Susp) 30 ml PO DAILY PRN PRN Reason: Constipation Magnesium Oxide (Magnesium Oxide 400 Mg Tablet) 400 mg PO BEDTIME [facility] Last Admin: 04/09/23 19:57 Dose: 400 mg Mirtazapine (Mirtazapine 7.5 Mg Tablet) 7.5 mg PO BEDTIME [facility] Last Admin: 04/09/23 19:57 Dose: 7.5 mg Nicotine (Nicotine 14 Mg Patch.Td24) 14 mg TRANSDERMA DAILY [facility] Last Admin: 04/10/23 08:28 Dose: 14 mg Nicotine Polacrilex (Nicotine Polacrilex 2 Mg Gum) 2 mg BUCCAL Q2H PRN PRN Reason: Nicotine Cravings Last Admin: 04/06/23 20:11 Dose: 2 mg Paliperidone Palmitate (Paliperidone Palmitate 156 Mg/Ml Syringe) 156 mg IM Q28D [facility] Last Admin: 04/10/23 10:34 Dose: 156 mg Vitamin D (Cholecalciferol (Vitamin D3) 25 Mcg Tablet) 50 mcg PO DAILY [facility] Last Admin: 04/10/23 08:28 Dose: 50 mcg Allergies Allergies Allergy/AdvReac Type Severity Reaction Status Date / Time No Known Allergies Allergy Verified 12/05/22 13:00 Assessment & Plan Assessment & Plan (1) Schizo affective schizophrenia: Status: Acute Code(s): F25.9 - Schizoaffective disorder, unspecified (2) PTSD (post-traumatic stress disorder): Status: Acute Code(s): F43.10 - Post-traumatic stress disorder, unspecified Plan 48 yo male, history of PTSD, schizophrenia, 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 Reports no current precipitants but no reason to live, responded to [facility] to harm himself. Willing to work with the team on current symptoms. Plan: Chlorpromazine 50 mg hs tonight to trial for sleep. Collateral contact, mother, Dr. Méndez Milieu involvement Medication re-evaluation and adjustment After care planning 04/04/23- Continue current regime and plan Increase Invega Sustenna to 156 mg IM on 04/10/23. 04/05/23- Continue current regime and plan of care 04/06/23 No changes 04/07/23: no changes, due for increased Invega Sustenna 04/1004/09/23 continue current regime and plan of care 04/10/23 Discharge 04/11. Tolerated increase in Sustenna today Patient educated on: medication risk/benefits and therapeutic strategies Informed Consent: understands and further education needed Reason for continued inpatient stay Substantial Risk for: stable for discharge Time Spent With Patient Time: Total time managing care of this patient today ____ minutes.
[2023-04-10 18:00] VITALS: BP 106/66; PULSE 94; RESP 16; O2SAT 96
[2023-04-10] MEDS: Mirtazapine 7.5 MG TABLET PO (19:38)
[2023-04-10] MEDS: Magnesium Oxide 400 MG TABLET PO (19:38)
[2023-04-10] MEDS: chlorproMAZINE HCl 100 MG TABLET PO (19:38)
[2023-04-11] MEDS: Nicotine 14 MG PATCH.TD24 TRANSDERMA (08:46)
[2023-04-11] MEDS: Divalproex Sodium 500 MG TABLET.DR PO (08:46)
[2023-04-11] MEDS: Cholecalciferol (Vitamin D3) 25 MCG TABLET 50 MCG PO (08:46)
[2023-04-11 09:20] VITALS: BP 113/66; PULSE 73; RESP 18; TEMP 36.9; O2SAT 98
--- NOTE | 2023-04-11 16:15 | PM.PSYDC ---
DS: Providers Provider Date of Service: 04/11/23 Date of admission: 04/01/23 19:01 Date of discharge: 04/11/23 Primary care physician: Unknown Physician Admitting clinician: Marleny Gandhi Attending physician on admission: Nael Glass Consults: 04/01/23 19:25 Consult to Hospitalist Routine Comment: Consulting Provider: Hospitalist Reason For Exam: medical H&P Attending physician on discharge: Nael Glass Discharging clinician: Marleny Gandhi DS: Diagnosis Discharge Diagnosis (1) Schizo affective schizophrenia: Status: Acute (2) PTSD (post-traumatic stress disorder): Status: Acute DS: Medications Discharge Medications Home Medications: Previous Rx's Medication Instructions Recorded chlorpromazine 100 mg tablet 100 mg PO BEDTIME #30 tabs 04/10/23 cholecalciferol (vitamin D3) 50 50 mcg PO DAILY #30 tabs 04/10/23 mcg (2,000 unit) tablet (Vitamin D3) divalproex 500 mg tablet,delayed 500 mg PO QAM #30 tabs 04/10/23 release magnesium oxide 1 mg (0.0025 x 400 mg magnesium) 04/10/23 PO BEDTIME #30 caps nicotine (polacrilex) 2 mg gum 2 mg buccal Q2H PRN Nicotine 04/10/23 Cravings #100 ea nicotine 14 mg/24 hr daily 14 mg transdermal DAILY #30 ea 04/10/23 transdermal patch paliperidone palmitate 156 mg/mL 156 mg IM Q28D #1 mL 04/10/23 intramuscular syringe (Invega Sustenna) riboflavin (vitamin B2) 400 mg 400 mg PO DAILY #30 tabs 04/10/23 tablet Mental Status Exam Mental Status Exam Patient Appearance: Appropriate Patient Orientation: Person, Place, Time and Situation Level of Consciousness: Alert Patient Behavior: Talkative, Isolative and Good Eye Contact Mood Description: Blunted Affect Description: Blunted Patient Cognition Impaired: No Ability to Follow Directions: Good Speech Pattern: Appropriate and Spontaneous Speech Memory Description: Intact Hallucinations: None (denies today) Delusions: Not Present Thought Process: Intact Thought Content: positive for Intact Depressive Symptoms: Thoughts of /Suicide (denies) Judgement: Good DS: Summary Hospital Course Hospital Course: Admission to adult psychiatry in transfer from [facility] for exacerbation of PTSD, Schizophrenia, Polysubstance Use. Pt reported a suicide attempt via overdose of 4 bottle of prescription medication. He was not able to tell what medicine he took or how much he took. Reported sleep cycle reversal and command auditory hallucinations to self harm. On the unit, medications were evaluated, adjusted and initiated with Abigail. He exhibited no behavioral dyscontrol and experienced a decrease in symptoms prior to discharge. He agreed to [facility] to assist with medication compliance. He will continue with Dr. Méndez and [facility] upon discharge. Time spent discussing smoking cessation with patient: 3 to 10 minutes Status at Discharge Functional status at discharge: independent ambulation Overall status at discharge: patient is progressing back to baseline Time Spent with Patient Time attestation: Total time managing care of this patient today ____ minutes. Time spent: Greater than 30 minutes Discharge Plan Discharge Anticipated Discharge Date/Time: 04/11/23 12:00 Patient Disposition: Home, Self-Care Discharge Diagnosis: PTSD Schizophrenia Referrals: [facility] [Other] - 04/11/23 (Fax- [phone] daily visits starting 04/11/23 ) [facility] Psych appt w Dr Méndez [Other] - 04/30/23 9:00 am (Telehealth) [facility] [Other] - 04/13/23 1:00 pm (Telehealth) Discharge Medications: New nicotine 14 mg/24 hr Patch 24 Hour 14 mg transdermal DAILY Qty: 30 0RF nicotine (polacrilex) 2 mg Gum 2 mg buccal Q2H PRN (Reason: Nicotine Cravings) Qty: 100 0RF Invega Sustenna 156 mg/mL Syringe 156 mg IM Q28D Qty: 1 0RF Rx Instructions: Due 05/10/23 chlorpromazine 100 mg Tablet 100 mg PO BEDTIME Qty: 30 0RF Continued divalproex 500 mg tablet,delayed release (DR/EC) 500 mg PO QAM Qty: 30 0RF cholecalciferol (vitamin D3) [Vitamin D3] 50 mcg (2,000 unit) tablet 50 mcg PO DAILY Qty: 30 0RF magnesium oxide 400 mg magnesium capsule 1 mg PO BEDTIME Qty: 30 0RF riboflavin (vitamin B2) 400 mg tablet 400 mg PO DAILY Qty: 30 0RF Discontinued trazodone 100 mg tablet 150 mg PO BEDTIME Invega Sustenna 117 mg/0.75 mL syringe 117 mg IM QMONTH Discharge Orders: Discharge Order (Routine); Ordered 04/10/23 Ordered By: Marleny Gandhi Diet: Advance to usual diet Activity on Discharge: As tolerated Stand Alone Forms: Patient Portal Discharge page, Community Support Care Plan Goals: Mood and Behavioral Stabilization Health Concerns: Mood and Behavioral Stabilizatoin Plan of Treatment: Attend scheduled appointments Take medications as directed Practice coping skills Assessment: Scheduled discharge Discharge Date/Time: 04/11/23 11:23
== END 2023-04-11 11:23 | disposition home or self-care (01) | DRG 750 ==
PROVIDERS: Social Worker; Admitting Provider Psychiatry & Neurology Psychiatry; Visit Provider Clinical Nurse Specialist Psychiatric/Mental Health, Adult
DX: F25.9 Schizoaffective disorder, unspecified (principal); R45.851 Suicidal ideations; F43.10 Post-traumatic stress disorder, unspecified; F17.210 Nicotine dependence, cigarettes, uncomplicated; Z71.6 Tobacco abuse counseling; Z79.899 Other long term (current) drug therapy
CPT/HCPCS: 36415; 80053; 80061; 82607; 82746; 83036; 84443; J2426

== ENCOUNTER → 2023-04-01 19:01 | Outpatient (BNV) | payer OTHER, SELFPAY | PROVIDERS: Admitting Provider Psychiatry & Neurology Psychiatry; Visit Provider Physician Assistant | DX: Z02.2 Encounter for examination for admission to residential institution (principal) | CPT/HCPCS: 99429 ==

== ENCOUNTER → 2023-04-01 19:01 | Outpatient (BNV) | payer OTHER, SELFPAY | PROVIDERS: Admitting Provider Psychiatry & Neurology Psychiatry; Visit Provider Clinical Nurse Specialist Psychiatric/Mental Health, Adult | DX: F25.1 Schizoaffective disorder, depressive type (principal); F43.11 Post-traumatic stress disorder, acute | CPT/HCPCS: 90792; 99231; 99232; 99239 ==